=== PATIENT | female | born 1940 | race Caucasian/White ===

== ENCOUNTER → 2018-09-06 | Outpatient (CLI) | payer BC ==
[~2018-09-06] MED LIST: ALBU18HF INH; AMIL5TAB2 PO; CALC3.7S5 INH; THYR60TA PO
== END | disposition home or self-care (01) ==
LOC: CFH 15:12
PROVIDERS: ATTEND Internal Medicine
DX: J44.9 Chronic obstructive pulmonary disease, unspecified (principal); M47.894 Other spondylosis, thoracic region; E65 Localized adiposity
CPT/HCPCS: 71046